=== PATIENT | male | born 1980 | race Caucasian/White ===

== ENCOUNTER 2023-07-25 13:31 | Emergency (ER) | payer OTHER ==
[~2023-07-25] VITALS: Ht 177.8 cm; Wt 100.0 kg
[2023-07-25] VITALS (10 sets, daily range): BP systolic 140–164; BP diastolic 90–104
[2023-07-25] MEDS ORDERED: AMLODIPINE BESYL5 MG PO (14:00)
[2023-07-25] MEDS ORDERED: COZAAR50 MG PO (16:56)
[2023-07-25] MEDS ORDERED: NORVASC5 M1 PO (16:56)
== END 2023-07-25 17:11 | disposition home or self-care (01) | DRG 305 ==
LOC: ED 13:31
DX: I10 Essential (primary) hypertension (principal)